=== PATIENT | female | born 2000 | race Caucasian/White ===

== ENCOUNTER 2020-12-09 09:41 | Emergency (ER) | payer OTHER ==
[~2020-12-09] VITALS: Ht 162.6 cm; Wt 54.4 kg
[2020-12-09] MEDS ORDERED: MEDROLDOSEPACK PO ×2 (11:15→12:11)
[2020-12-09 12:13] VITALS: BP 110/70
== END 2020-12-09 12:13 | disposition home or self-care (01) ==
LOC: M.ERS 09:41
DX: S93.491A Sprain of other ligament of right ankle, initial encounter (principal); V89.0XXA Person injured in unspecified motor-vehicle accident, nontraffic, initial encounter; Y93.89 Activity, other specified; Y92.89 Other specified places as the place of occurrence of the external cause; Y99.8 Other external cause status